=== PATIENT | female | born 2005 | race Two or more races ===

== ENCOUNTER 2024-10-17 11:51 | Emergency (ER) | payer MEDICAID, SELFPAY ==
[2024-10-17 11:55] VITALS: BP 124/73; PULSE 115; RESP 20; TEMP 37.2; O2SAT 100
--- NOTE | 2024-10-17 12:19 | XR_ITS ---
Examination: PA and lateral chest 2 views TECHNIQUE: Upright PA and lateral chest 2 views Date and time: October 17, 2024: 1234e hours INDICATIONS: Cough and shortness of breath in the 2 days ago. FINDINGS: Normal heart size Lungs are clear The osseous structures are intact IMPRESSION: No active disease
--- NOTE | 2024-10-17 12:21 | EKG_ITS ---
[facility] Test Date: 2024-10-17 Pat Name: AGGIE PEREIRA Department: Room: - Gender: Female [employer] Dra[employer]: : 2005 Requested By: Mehul Hassan (SILAS) Order Number: [id number] Reading MD: Mehul Hassan (CONSUMER RELATIONS SPECIALIST) Measurements Intervals [place] Rate: 109 P: 79 NV: 145 QRS: 79 QRSD: 90 T: 40 QT: 321 QTc: 434 Interpretive Statements SINUS TACHYCARDIA NONSPECIFIC ST & T-WAVE ABNORMALITY ABNORMAL RHYTHM ECG No previous ECG available for comparison /[id number]/[email or web address]/[id number].pdf
--- NOTE | 2024-10-17 12:23 | EDRME_ITS ---
Rapid Medical Screening Exam [facility] Arrival date/time: 10/17/24 11:51 19-year-old female with history of anxiety presents emergency dept today for complaint of generalized body aches and fevers began last night Chief Complaint: Shortness of Breath/Dyspnea Vital signs: Vital Signs Temperature 98.9 F 10/17/24 11:55 Pulse Rate 115 H 10/17/24 11:55 Respiratory Rate 20 10/17/24 11:55 Blood Pressure 124/73 10/17/24 11:55 Pulse Oximetry (%) 100 10/17/24 11:55 Oxygen Delivery Method Room Air 10/17/24 11:55
[2024-10-17] MEDS: ALPRazoLAM 0.25 MG TABLET PO (12:46)
[2024-10-17] MEDS: IBUPROFEN TAB 600 MG TABLET PO (12:46)
[2024-10-17 12:52] LABS: Basophils % (Auto) 0 % (0-2.5); Eosinophils % (Auto) 0 % (0-10); Hematocrit 38.9 % (36.0-46.0); Hemoglobin 13.2 g/dL (12.0-16.0); Immature Granulocytes % (Auto) 0 % (0-0); Immature Granulocytes Auto 0.06 Thou/mm3 (0.00-0.00); Lymphocytes # (Auto) 1.5 Thou/mm3 (1.0-4.8); Lymphocytes % (Auto) 11 % (10-50); Mean Corpuscular HGB Conc 33.9 g/dl (31.0-37.0); Mean Corpuscular Hemoglobin 25.9 pg (25.0-35.0); Mean Corpuscular Volume 76 fL (80-100); Monocytes # (Auto) 0.5 Thou/mm3 (0.0-0.8); Monocytes % (Auto) 4 % (0-12); Neutrophils # (Auto) 11.5 Thou/mm3 (1.8-7.7); Neutrophils % (Auto) 84 % (37-80); Nucleated Red Blood Cell % 0 /100 WBC (0); Platelet Count 262 Thou/mm3 (140-440); RDW Standard Deviation 43.5 fL (36.4-46.3); White Blood Count 13.6 Thou/mm3 (4.5-11.0)
[2024-10-17 13:11] LABS: Alanine Aminotransferase 13 U/L (10-49); Albumin, Serum 5.2 gm/dL (3.5-5.0); Albumin/Globulin Ratio 1.7 (1.2-2.2); Alkaline Phosphatase 84 U/L (46-116); Anion Gap 14 (7-16); Aspartate Amino Transferase 17 U/L (0-34); BUN/Creatinine Ratio 8 Ratio (12-20); Bilirubin,Total 0.9 mg/dL (0.3-1.2); Blood Urea Nitrogen 8 mg/dL (9-23); Calcium 10.7 mg/dL (8.3-10.6); Calcium (Corrected) 10.7 mg/dL (8.5-10.1); Carbon Dioxide 22.3 mMol/L (20.0-31.0); Chloride 101 mMol/L (98-107); Glucose 108 mg/dL (74-106); Osmolality,Calculated 273 (275-295); Potassium 3.3 mMol/L (3.4-5.1); Sodium 137 mMol/L (136-145); Total Protein 8.2 gm/dL (5.7-8.2); Troponin I < 0.002 ng/mL (0.0-0.045); eGFR > 60 See Note
[2024-10-17 13:40] LABS: HCG Qualitative,Urine Negative
--- NOTE | 2024-10-17 15:31 | PC.NURSE ---
NO ANSWER WHEN CALLED TO BE PLACED IN ROOM
--- NOTE | 2024-10-17 15:40 | PC.NURSE ---
CALLED FROM [facility] AND NO ANSWER. PT NOT FOUND INSIDE THE E.D. OR OUTSIDE
--- NOTE | 2024-10-17 15:49 | PC.NURSE ---
CALLED FROM [facility] AND NO ANSWER. NOT FOUND INSIDE THE E.D. OR OUTSIDE
== END 2024-10-17 15:50 | disposition left against medical advice (07) ==
LOC: SERX 13:09
PROVIDERS: Nurse Practitioner Primary Care; Emergency Provider Family Medicine; PCP Nurse Practitioner Family
DX: R06.02 Shortness of breath (principal); R52 Pain, unspecified; R50.9 Fever, unspecified; R06.00 Dyspnea, unspecified; R00.0 Tachycardia, unspecified; R05.9 Cough, unspecified; Z53.29 Procedure and treatment not carried out because of patient's decision for other reasons
CPT/HCPCS: 36415; 71046; 80053; 81025; 84484; 85025; 87400; 87651; 87811; 93005; 99281; A9270